=== PATIENT | female | born 1935 | race Caucasian/White ===

== ENCOUNTER 2023-06-18 19:31 | Inpatient (IN) | payer MEDICARE, MEDICAID, SELFPAY ==
[2023-06-18] VITALS (12 sets, daily range): BP systolic 98–148; BP diastolic 50–86; PULSE 94–99; RESP 12–28; TEMP 36.3; O2SAT 90–100
--- NOTE | ~2023-06-18 | XR_ITS ---
EXAMINATION: XR chest PICC line DATE: 06/19/2023 10:16 INDICATION: PICC line placement TECHNIQUE: frontal view of the chest was obtained. COMPARISON: Chest radiograph dated 06/18/2023 FINDINGS: Right upper extremity peripherally inserted central venous catheter (PICC) tip at the mid superior v alban cava. Endotracheal tube tip 3.0 cm above the sonja. Retrocardiac opacity corresponding to a moderate-sized hiatal hernia. A few skin folds project over t he right hemithorax. No new airspace opacities, pulmonary edema, pleural effusion or pneumothorax. He art size is normal. Pigtail drainage catheter projects over the right upper quadrant. Pedicle screws are seen from incompletely visualized lumbar posterior spinal fusion. IMPRESSION: 1. Right PICC line tip in the midsuperior vena cava. No acute cardiopulmonary disease. 2. Moderate-sized hiatal hernia. Reviewed, dictated and finalized at location A. RAM ENGINEER IMPRESSION: 1. Right PICC line tip in the midsuperior vena cava. No acute cardiopulmonary d isease. 2. Moderate-sized hiatal hernia.
--- NOTE | ~2023-06-18 | XR_ITS ---
XR chest 1V portable DATE: 06/20/2023 05:46 INDICATION: Respiratory failure TECHNIQUE: Portable AP chest on 06/20/2023 at 0520 hours COMPARISON: 06/19/2023 portable AP chest at 0958 hours FINDINGS: ET tube in satisfactory position 3.9 cm above sonja. Right upper extremity PIC catheter ti p overlies superior vena cava. Increased retrocardiac density on the left consistent with left lower lobe atelectasis and/or consoli dation. The lungs otherwise appear clear. No pleural effusion or pulmonary vascular congestion or pne umothorax is detected. Status post posterior lumbar spinal surgical fusion beginning superiorly at L3.. Pigtail catheter overlies right upper quadrant of abdomen. IMPRESSION: Left lower lobe atelectasis and/or consolidation Reviewed, dictated and finalized at location A. OMINIUM PROPERTY MANAGER
--- NOTE | ~2023-06-18 | CT_ITS ---
EXAMINATION: CT abdomen pelvis wo con DATE: 06/18/2023 21:52 INDICATION: AMS, biliary drain TECHNIQUE: Computed tomography (CT) of the abdomen and pelvis was performed without intravenous contr ast. Automated exposure control and iterative reconstruction technique were employed. The dose-length product was 436.75 mGy-cm. COMPARISON: X-ray abdomen, same date. FINDINGS: Lower thorax: Large hiatal hernia containing at least one half of the stomach. Heavy coronary artery calcification. Mitral calcification. Liver: Normal. Biliary/Gallbladder: Gallbladder is absent. No bile duct dilation. Pancreas: No mass or duct dilation. Spleen: Normal. Adrenals:No mass. Kidneys: No suspicious mass, obstructing stone, or hydronephrosis. GI tract: Borderline dilated, mostly air-filled cecum. Fecal content in the distal small bowel. The r ectum is mildly dilated up to 5.7 cm by partially formed stool. No small bowel dilation. Surgically a bsent appendix. Mesentery/Peritoneum: No ascites, mass, or free air. There is a pigtail drain in the right upper quad rant. Retroperitoneum: No mass. Atherosclerotic abdominal aortic and/or arterial calcifications. Pelvis: The bladder is decompressed by Andrade catheter. Atrophic uterus and ovaries. Soft Tissues: Soft tissues and body wall unremarkable. Bones: No acute osseous finding. Uncomplicated L3-L5 posterior fusion, with interbody devices at L3- 4. IMPRESSION: Large hiatal hernia containing approximately one half of the stomach. NG tube is high positioned in t he prior x-ray abdomen. Failure to pass an NG tube can be a sign of gastric volvulus. No overt signs of gastric volvulus in this CT examination, although this entity cannot be entirely excluded. The gallbladder is not confidently identified and may be surgically absent. Pigtail drain in the righ t upper quadrant, presumably in the cholecystectomy bed. Correlate with past surgical history. Likely chronic borderline dilation of the cecum. Fecal content in the distal small bowel as can be se en with slow transit time. Mild fecal impaction. Gastric findings reported telephonically to Dr. Gutierrez by Dr. Magdaleno at 10:30 PM on 06/18/2023. Reviewed, dictated and finalized at location K. LY SERVICE CASEWORKER IMPRESSION: Large hiatal hernia containing approximately one half of the stomach. NG tube i s high positioned in the prior x-ray abdomen. Failure to pass an NG tube can be a sign of gastric volvulus. No overt signs of gastric volvulus in this CT exam ination, although this entity cannot be entirely excluded. The gallbladder is not confidently identified and may be surgically absent. Pig tail drain in the right upper quadrant, presumably in the cholecystectomy bed. Correlate with past surgical history. Likely chronic borderline dilation of the cecum. Fecal content in the distal sm all bowel as can be seen with slow transit time. Mild fecal impaction. Gastric findings reported telephonically to Dr. Gutierrez by Dr. Magdaleno at 10:30 PM on 06/18/2023.
--- NOTE | ~2023-06-18 | XR_ITS ---
EXAMINATION: XR chest ET placement Exam Date/Time: 06/18/2023 19:55 EMBEDDED SOFTWARE DESIGN ENGINEER HISTORY: ET placement Comparison: None. RESULT: Lines, tubes, and devices: Endotracheal tube, terminating 4.7 cm above the sonja. Partially visuali zed lumbar fusion hardware. Partially visualized right ureteral stent. Lungs and pleura: Leftward rotation. Rounded retrocardiac opacity, likely hiatal hernia. Senescent c hanges. No focal consolidation, pleural effusion, or pneumothorax. Cardiomediastinal silhouette: Stable. Other: No acute osseous or upper abdominal finding. IMPRESSION: Endotracheal tube terminating 4.7 cm above the sonja. Reviewed, dictated and finalized at location K. DDED SOFTWARE DESIGN ENGINEER
--- NOTE | ~2023-06-18 | XR_ITS ---
EXAM: XR abdomen gastric tube insert DATE: 06/18/2023 20:19 HISTORY: OG TUBE . COMPARISON: X-ray chest, same date. FINDINGS: Likely large hiatal hernia and/or aortic ectasia. Clear lung bases. Normal bowel gas patte rn. Partially visualized lumbar fusion hardware and right ureteral stent. The distal tip of the nasog astric tube terminates in the distal esophagus. IMPRESSION: The nasogastric tube terminates in the distal esophagus, consider advancing 15 cm. Reviewed, dictated and finalized at location K. R PRESS OPERATOR IMPRESSION: The nasogastric tube terminates in the distal esophagus, consider a dvancing 15 cm.
--- NOTE | ~2023-06-18 | CT_ITS ---
EXAMINATION: CT brain wo con DATE: 06/18/2023 21:49 INDICATION: AMS . TECHNIQUE: Computed tomography (CT) of the head was performed without intravenous contrast. The mA wa s adjusted according to patient size. Iterative reconstruction technique was employed. The dose-lengt h product was 605.33 mGy-cm. COMPARISON: None. FINDINGS: No acute intracranial hemorrhage or extra-axial fluid collection. Moderate-severe enlargement of the ventricular system. No acute ischemic infarct. Unremarkable dural venous sinus attenuation. No acute osseous abnormality. Aerated secretions in the sphenoid sinuses, the remaining aerated spaces are clear. Possible severe atrophy and moderate chronic white matter change. Atherosclerotic intracranial calcif ication. Bilateral lens replacements. Partially empty sella. IMPRESSION: Enlarged ventricular system, may be secondary to central atrophy, also consider normal pressure hydro cephalus in the differential. Reviewed, dictated and finalized at location K. GNA MAKER IMPRESSION: Enlarged ventricular system, may be secondary to central atrophy, also consider normal pressure hydrocephalus in the differential.
[2023-06-18] MEDS: SODIUM CHLORIDE 0.9% IV 1,000 ML 999 ML IV CONT ×2 (19:40→22:45)
--- NOTE | 2023-06-18 19:50 | ECG_ITS ---
Measurements Intervals [place] Rate: 97 P: -62 NV: 138 QRS: -36 QRSD: 116 T: 89 QT: 362 QTc: 460 Interpretive Statements JUNCTIONAL RHYTHM POSSIBLE LEFT ATRIAL ENLARGEMENT [-0.1mV P WAVE IN V1/V2] MARKED LEFT AXIS DEVIATION [QRS AXIS < -30] INCOMPLETE LEFT BUNDLE BRANCH BLOCK/IVCD ST DEVIATION AND MODERATE T-WAVE ABNORMALITY, CONSIDER LATERAL ISCHEMIA [-0.1+ mV T WAVE IN I/aVL/V5/V6] ABNORMAL ECG NO PREVIOUS ECG AVAILABLE FOR COMPARISON Electronically Signed On 06-19-2023 15:00:13 RESIDENCE DIRECTOR by Rodney Hills M.D.
--- NOTE | 2023-06-18 19:55 | ED.GENADULT ---
HPI - General Adult General Chief complaint: Altered Mental Status Stated complaint: ams Time Seen by Provider: 06/18/23 19:35 History of Present Illness HPI narrative: 88-year-old female presenting to the emergency department for evaluation for unresponsiveness. Patient is coming from home. Patient was recently diagnosed with a urinary tract infection. initially told EMS that the patient was DNI DNR comfort care. Upon arrival to the emergency department patient's states that he does not want her to be resuscitated but that he does want her to be intubated. Upon arrival to the emergency department patient was obtunded and had no gag reflex. She was intubated to protect her airway Related Data Home Medications Medication Instructions Recorded Confirmed duloxetine 60 mg capsule,delayed 120 mg PO DAILY 06/19/23 06/19/23 release glipizide 5 mg tablet 5 mg PO BID 06/19/23 06/19/23 losartan 100 mg tablet 100 mg PO DAILY 06/19/23 06/19/23 memantine 10 mg tablet 10 mg PO BID 06/19/23 06/19/23 metformin 500 mg/5 mL oral solution 500 mg PO BID 06/19/23 06/19/23 mirtazapine 45 mg tablet 45 mg PO HS 06/19/23 06/19/23 quetiapine 25 mg tablet 25 mg PO TID 06/19/23 06/19/23 trazodone 50 mg tablet 25 mg PO TID PRN Agitation 06/19/23 06/19/23 Allergies Allergy/AdvReac Type Severity Reaction Status Date / Time No Known Allergies Allergy Verified 06/18/23 21:26 Review of Systems Review of Systems: ROS unobtainable: Yes unobtainable due to medical condition PMFSH Social History Social History Smoking status: Never smoker Alcohol intake: never Substance use: never Do You Feel Safe in your Home?: Yes Lack of Transportation: No Lack of Food: Never True Current Housing: Decline to Answer Concerned About Future Housing: No Difficulty Paying Gas/Electric Bills: No Difficulty Paying for Meds: No Currently Unemployed: No Education: Decline to Answer Difficulty w/ Childcare or Family Care: No Spiritual care concerns: No Exam Narrative: APPEARANCE: obtunded and unresponsive HEAD: normocephalic, atraumatic. EYES: PERRLA/EOMI, conjunctivae clear. NOSE: Normal no drainage EARS:TMS clear with good light reflex. THROAT: Pharynx clear, no exudate. NECK: Supple. No adenopathy, no masses. RESPIRATORY: Airway patent, respirations nonlabored. Clear to auscultation bilaterally, no rales, rhonchi, wheezing. CARDIOVASCULAR: Regular rate and rhythm without murmurs rubs or gallops. ABDOMINAL: Soft, nontender, nondistended, normal bowel sounds MUSCULOSKELETAL: Moves all extremities. Strength/ROM intact, No edema, No calf tenderness. NEURO: does respond to noxious stimuli with no intention SKIN: Warm, dry. Normal Color Course Course Emergency Course: 88-year-old female presenting to the emergency department by EMS in respiratory distress and unresponsive. Patient was intubated shortly after arrival to the emergency department to protect her airway. Patient had a Andrade catheter placed and had urine that was significant for urinary tract infection. Patient was started on IV fluids. Patient was afebrile but does have a leukocytosis of 24. Patient's initial ABG showed a pH of 7.05, pCO2 of 13 and a PO2 of 400. Patient's respiratory rate was decreased and patient's FiO2 was decreased response to this. Patient's initial potassium was elevated 6.1 she was treated with bicarb insulin and IV fluids. Patient's creatinine was 5.8. Case was discussed with the spring coverer the patient was accepted to the ICU. Case discussed with hospitalist. Patient's was updated on the seriousness of the patient's illness. Vital Signs Vital signs: Vital Signs Pulse Rate 99 06/18/23 19:35 Respiratory Rate 28 H 06/18/23 19:35 Blood Pressure 98/57 L 06/18/23 19:35 Pulse Oximetry 90 06/18/23 19:35 Oxygen Delivery Non-Rebreather Mask 06/18/23 19:35 Oxygen Flow Rate 15 06/18/23 19:3
[2023-06-18] MEDS: PROPOFOL IV EMULSION 100 ML 1.56 MG IV CONT (20:00)
--- NOTE | 2023-06-18 20:02 | ECG_ITS ---
Measurements Intervals [place] Rate: 93 P: 57 NH: 152 QRS: -41 QRSD: 114 T: 64 QT: 397 QTc: 495 Interpretive Statements SINUS RHYTHM MARKED LEFT AXIS DEVIATION [QRS AXIS < -30] INCOMPLETE LEFT BUNDLE BRANCH BLOCK/Ivcd ABNORMAL ECG COMPARED TO ECG 06/18/2023 19:38:41 NO DIFFERENCE Electronically Signed On 06-19-2023 15:06:22 WARP SPOOLER by Rodney Hills M.D.
--- NOTE | 2023-06-18 20:10 | PC.NURSE ---
1934 - pt arrival satting 90% on 15L NRB. Pt unresponsive to sternal rub. 1939 - Dr. Gutierrez at bedside. Decided to intubate. VORB 20 etomidate, 100 succinylcholine. 2 liters of fluids infusing. 1944 - EDP Dr Gutierrez, RT, Alia Bonilla, and this RN at bedside. 90% NRB, 89/48, HR 101, RR 29 1945 - 20 etomidate IVP and flushed by Alia RN 100 succinylcholine IVP and flushed by Alia [place] 1946 - positive color change, bilateral breath sounds, equal chest rise and fall. 7.5 ET tube, 21 @ the lip 1947 - bagging by RT 1949 - 95% on vent, 148/50, HR 93, RR 13 1954 - xray at bedside to check placement of ET tube. 1999 - propofol sedation started at 5mcg/min
[2023-06-18 20:55] LABS: Alveolar/Arterial O2 Gradient 145.4 mmHg; Base Excess ABG -24.3 mEq/l (+/-2.0); Carboxyhemoglobin 0.3 % THb (0-2.0); Fractional Inspired Oxygen 80 %; HCO3 ABG 3.7 mEq/l (22.0-26.0); Methemoglobin ABG 0.4 %THb (0-1.5); Oxygen Content ABG 17.4 %vol (16.0-22.0); Oxygen Saturation ABG 99.7 % (95.0-100.0); Oxyhemoglobin 98.3 % THb (90.0-100.0); PO2 ABG 411.4 mmHg (80.0-100.0); PO2 FiO2 Ratio Arterial Blood 5.14 %; Total Hemoglobin 11.8 g/dL (12.0-18.0)
[2023-06-18 20:57] LABS: pH ABG 7.075 (7.350-7.450)
[2023-06-18 20:58] LABS: Arterial Blood Gas Ventilator rate 15 /MIN; Device VENTILATOR; Modified Allen's Test Pass; Site Drawn LEFT BRACHIAL
[2023-06-18 20:59] LABS: Arterial Blood Gas PEEP 5 cmH2O; Arterial Blood Gas Tidal Volume 400 ml; Arterial Blood Gas Vent Mode CMV
[2023-06-18 21:25] LABS: Basophils Absolute Auto 0.1 K/mm3 (0.0-0.1); Basophils Percent Auto 0.5 % (0.2-1.2); Eosinophils Percent Auto 0.1 % (0-4.4); Hematocrit 41.8 % (37.0-47.0); Hemoglobin 12.9 g/dL (12.0-15.0); Immature Granulocyte Absolute 1.06 K/mm3 (0.00-0.031); Immature Granulocyte Percent A 4.3 % (0-0.5); Lymphocytes Absolute Auto 0.57 K/mm3 (0.9-3.2); Lymphocytes Percent Auto 2.3 % (18.3-44.2); Mean Corpuscular HGB Conc 30.9 g/dl (32-36); Mean Corpuscular Hemoglobin 24.7 pg (26-34); Mean Corpuscular Volume 79.9 fl (80-100); Mean Platelet Volume 9.2 fl (7.4-10.4); Monocytes Absolute Auto 0.7 K/mm3 (0.1-0.6); Monocytes Percent Auto 2.9 % (2.6-8.5); Neutrophils Absolute Auto 21.9 K/mm3 (1.3-6.7); Neutrophils Percent Auto 89.9 % (45.5-73.1); Platelet Count Result 410 k/mm3 (150-375); Red Blood Count 5.23 M/mm3 (4.2-5.4); White Blood Count 24.4 K/mm3 (4.5-10.0)
[2023-06-18 21:35] LABS: INR 1.2; Prothrombin Time 15.7 Seconds (11.1-14.7)
[2023-06-18 21:36] LABS: CRP 3.5 mg/dL (<1.0); Partial Thromboplastin Time 31.7 SECONDS (22.3-36.8); Triglycerides 181 mg/dL (<150)
[2023-06-18 21:40] LABS: Appearance Urine Turbid (Clear); Bacteria Urine 1+ /hpf; Bilirubin Urine 1+ (Negative); Blood Urine 1+ (Negative); Budding Yeast Urine Present /hpf; Glucose Urine UA Negative (Negative); Ketones Urine Negative (Negative); Leukocyte Esterase Ur 3+ LEU/UL (Negative); Need Manual Microscopic Reviewed; Nitrate Urine Positive (Negative); Non Pathogenic Casts 0-2; Protein Urine 2+ mg/dL (Negative); RBC Urine >100 /hpf (0-2); Specific Grav Ur 1.016 (1.001-1.035); Squamous Epithelial Cell Urine Many /hpf (Few); Urobilinogen Urine 0.2 mg/dL (<2.0); WBC Urine >100 /hpf
[2023-06-18 21:43] LABS: Add Urine Microscopic? YES; Color Urine Brown (Yellow)
[2023-06-18 21:46] LABS: Estimated CRCL calculation 5 ml/min; Estimated Glomerular Filt Rate 7
[2023-06-18 21:50] LABS: Alanine Aminotransferase 74 U/L (6-35); Albumin Level 4.2 g/dL (3.5-5.1); Alkaline Phosphatase 127 U/L (38-126); Aspartate Amino Transferase 36 U/L (14-36); Bilirubin,Total 0.7 mg/dL (0.2-1.3); Blood Urea Nitrogen > 120 mg/dL (7-17); Calcium 9.4 mg/dL (8.4-10.2); Carbon Dioxide < 5 mmol/L (22-30); Chloride 103 mmol/L (98-107); Glucose 381 mg/dL (65-110); Lipase 54 U/L (23-300); Potassium 6.1 mmol/L (3.4-5.0); Sodium 131 mmol/L (137-145)
[2023-06-18 21:51] LABS: Ovalocytes 1+ (NORMAL); Platelet Estimate Increased (Adequate); Schistocytes None Seen (NORMAL)
--- NOTE | 2023-06-18 22:01 | PC.NURSE ---
pt back in room from CT scan.
[2023-06-18 22:05] LABS: Estimated CRCL calculation 5 ml/min; Estimated Glomerular Filt Rate 8
[2023-06-18 22:15] LABS: Erythrocyte Sedimentation Rate 10 mm/hr (0-20)
[2023-06-18] MEDS: SODIUM BICARBONATE 8.4% 50 MEQ/50 ML SYRINGE IV PUSH (22:44)
[2023-06-18] MEDS: INSULIN HUMAN REGULAR (*BKC) 100 UNITS/ML 10 UNITS IV PUSH (22:44)
--- NOTE | 2023-06-18 22:53 | PC.NURSE ---
multiple attempts at NG/OG placement by multiple RN's without success. EDP made aware.
[2023-06-18 23:09] LABS: Procalcitonin 3.6 ng/mL
[2023-06-18] MEDS: VANCOMYCIN 750 MG/NS 250 ML 750 MG/250 ML BAG 250 MG IVPB (23:13)
[2023-06-19] VITALS (52 sets, daily range): BP systolic 55–141; BP diastolic 27–89; PULSE 94–134; RESP 15–39; TEMP 34.3–38.1; O2SAT 66–100; BMI 22.1
--- NOTE | 2023-06-19 | ECHO_ITS ---
Patient Info Name: Marcelina Cortes Age: 88 years : 1935 Gender: Female Ht: 61 in Wt: 114 lbs BSA: 1.50 m2 HR: 108 bpm BP: 114 / 80 mmHg Heart Rhythm: Sinus Rhythm Technical Quality: Poor Exam Date: 06/19/2023 10:53 AM Exam Location: Echo Lab Exam Room: ICU7 Patient Status: Inpatient Admit Date: 06/19/2023 Staff Ordering Physician: Jacquelyn Knight MD Agricultural Extension Educator: Sujata Ramirez RDCS Attending Provider: José Miguel Richard MD Referring Physician: Eugene JIMENEZ; Exam Type: CA echo dop color flow w con Study Info Indications - SEPTIC SHOCK Complete two-dimensional, color flow and Doppler transthoracic echocardiogram is performed with contrast to opacify the left ventricle and to improve the deliniation of the left ventricle endocardial borders. Contrast/Agitated Saline Contrast/Ag. Saline: Definity Amount: 2.00 ml Administered By: Sujata Ramirez [facility] Existing IV Access: Yes Reason for Poor Study: poor echocardiographic windows Summary 1. Technically challenging echocardiogram, definity contrast used to improve visualization. 2. Normal left ventricular size with hyperdynamic systolic contractility. 3. Heavily calcified mitral valve annulus. 4. Sclerotic aortic valve with good leaflet separation, no stenosis. Left Ventricle Left ventricular chamber dimension is normal. Left ventricular systolic function is hyperdynamic, estimated at >70%. The left ventricular diastolic function is grade I diastolic dysfunction. Right Ventricle Right ventricular chamber dimension is normal. Left Atria Left atrial chamber dimension is normal. Right Atria Right atrial chamber dimension is normal. Aortic Valve The aortic valve is trileaflet. There is mild aortic valve sclerosis. Pulmonic Valve The pulmonic valve is not well visualized. Mitral Valve The mitral valve has normal leaflets. The mitral valve annulus is severely calcified. Tricuspid Valve The tricuspid valve leaflets are normal. Pericardium/Pleural The pericardium appears normal. Aorta The aortic root size at the sinus of Valsalva is normal. Left Ventricular Outflow Tract Name Value Normal LVOT 2D LVOT Diameter 1.98 cm Mitral Valve Name Value Normal MV Diastolic Function MV E Peak Velocity 49.58 cm/s MV A Peak Velocity 2.60 cm/s MV E/A 19.04 Aortic Valve Name Value Normal AV Regurgitation 2D LVOT Area 3.06 cm2 Ventricles Name Value Normal LV Dimensions 2D/MM
--- NOTE | 2023-06-19 00:02 | PM.IMHP ---
H&P: HPI History of Present Illness Date/Time: 06/19/23 00:02 Chief Complaint: Altered mental status Narrative: This is an 88-year-old female with past medical history significant for hypertension, diabetes, depression. Patient was brought to the emergency room by her due to altered mental status, lethargy patient had a procedure done at outside facility had a drain placed in her gallbladder according to she progressively declined after that , noticed generalized weakness, poor per orally intake, poor appetite. Upon arrival to emergency room patient had to be immediately placed on life support. Preliminary workup was significant for lactic acid of 8, ABG showed a pH of 7.075, BUN 120 creatinine 5.8 a urinalysis showed numerous WBCs present. EXAMINATION: CT abdomen pelvis wo con DATE: 06/18/2023 21:52 INDICATION: AMS,? biliary drain TECHNIQUE: Computed tomography (CT) of the abdomen and pelvis was performed without intravenous contrast. Automated exposure control and iterative reconstruction technique were employed. The dose-length product was 436.75 mGy-cm. COMPARISON: X-ray abdomen, same date. FINDINGS: Lower thorax: Large hiatal hernia containing at least one half of the stomach. Heavy coronary artery calcification. Mitral calcification. Liver: Normal.? Biliary/Gallbladder: Gallbladder is absent. No bile duct dilation. Pancreas: No mass or duct dilation. Spleen: Normal. Adrenals:No mass. Kidneys: No suspicious mass, obstructing stone, or hydronephrosis. GI tract: Borderline dilated, mostly air-filled cecum. Fecal content in the distal small bowel. The rectum is mildly dilated up to 5.7 cm by partially formed stool. No small bowel dilation. Surgically absent appendix. Mesentery/Peritoneum: No ascites, mass, or free air. There is a pigtail drain in the right upper quadrant. Retroperitoneum: No mass. Atherosclerotic abdominal aortic and/or arterial calcifications. Pelvis: The bladder is decompressed by Andrade catheter. Atrophic uterus and ovaries. Soft Tissues: Soft tissues and body wall unremarkable. Bones:? No acute osseous finding. Uncomplicated L3-L5 posterior fusion, with interbody devices at L3-4. IMPRESSION: Large hiatal hernia containing approximately one half of the stomach. NG tube is high positioned in the prior x-ray abdomen. Failure to pass an NG tube can be a sign of gastric volvulus. No overt signs of gastric volvulus in this CT examination, although this entity cannot be entirely excluded. The gallbladder is not confidently identified and may be surgically absent. Pigtail drain in the right upper quadrant, presumably in the cholecystectomy bed. Correlate with past surgical history. Likely chronic borderline dilation of the cecum. Fecal content in the distal small bowel as can be seen with slow transit time. Mild fecal impaction. EXAMINATION:? XR chest ET placement Exam Date/Time:? 06/18/2023 19:55 ENERGY CROP FARMER HISTORY: ET placement ? Comparison:? None. RESULT: Lines, tubes, and devices:? Endotracheal tube, terminating 4.7 cm above the sonja. Partially visualized lumbar fusion hardware. Partially visualized right ureteral stent. Lungs and pleura:? Leftward rotation. Rounded retrocardiac opacity, likely hiatal hernia. Senescent changes. No focal consolidation, pleural effusion, or pneumothorax. Cardiomediastinal silhouette:? Stable. Other:? No acute osseous or upper abdominal finding. ? IMPRESSION: Endotracheal tube terminating 4.7 cm above the sonja. Review of Systems Review of Systems: ROS unobtainable: Yes unobtainable due to medical condition (Patient is on life support) [facility] Social History Social History Smoking status: Never smoker Alcohol intake: never Substance use: never Do You Feel Safe in your Home?: Yes Lack of Transportation: No Lack of Food: Never True Current Housing: Decline to Answer Concerned About Future Housing: No Difficulty Paying Gas/El
--- NOTE | 2023-06-19 01:24 | ADMGEN ---
This patient, Marcelina Cortes, was admitted to Intensive Care Unit-7. Patient/family oriented to hospital policies and general routines including ID bracelet, bed and alarms, visiting hours, pain management, procedures, bathroom and other care routines, personal items, smoking policy, room service/diet, and visiting hours. Information on how to activate the Rapid Response Team has been discussed. Patient/Family are encouraged to report perceived risks to care and to ask questions if they do not understand what they are told or what they should do.
[2023-06-19 01:38] LABS: Reflex Lactic Acid Yes or No Add Lactic
[2023-06-19 02:44] LABS: Glucose Point of Care 223 mg/dl (65-105)
[2023-06-19] MEDS: SODIUM CHLORIDE 0.9% IV 1,000 ML 125 ML IV CONT (02:53)
[2023-06-19 03:29] LABS: Hematocrit 40.3 % (37.0-47.0); Hemoglobin 12.1 g/dL (12.0-15.0); Mean Corpuscular Hemoglobin 24.5 pg (26-34); Mean Corpuscular Volume 81.7 fl (80-100); Mean Platelet Volume 9.3 fl (7.4-10.4); Platelet Count Result 365 k/mm3 (150-375); Red Blood Count 4.93 M/mm3 (4.2-5.4); White Blood Count 29.9 K/mm3 (4.5-10.0)
[2023-06-19 04:03] LABS: Lactic Acid 7.5 mmol/L (0.7-2.0)
[2023-06-19 04:05] LABS: Calcium 9.3 mg/dL (8.4-10.2); Carbon Dioxide < 5 mmol/L (22-30); Chloride 108 mmol/L (98-107); Estimated CRCL calculation 6 ml/min; Estimated Glomerular Filt Rate 8; Glucose 206 mg/dL (65-110); Magnesium 1.9 mg/dL (1.6-2.3); Potassium 4.7 mmol/L (3.4-5.0); Sodium 135 mmol/L (137-145)
[2023-06-19] MEDS: SODIUM BICARBONATE 8.4% 50 MEQ/50 ML SYRINGE 100 MEQ IV PUSH ×3 (04:25→21:39)
[2023-06-19 04:39] LABS: Alveolar/Arterial O2 Gradient 185.1 mmHg; Base Excess ABG -6.2 mEq/l (+/-2.0); Fractional Inspired Oxygen 100 %; HCO3 ABG 15.9 mEq/l (22.0-26.0); Oxygen Content ABG 16.8 %vol (16.0-22.0); Oxygen Saturation ABG 99.9 % (95.0-100.0); Oxyhemoglobin 98.3 % THb (90.0-100.0); PO2 ABG 505.2 mmHg (80.0-100.0); PO2 FiO2 Ratio Arterial Blood 5.05 %; Total Hemoglobin 11.1 g/dL (12.0-18.0); pH ABG 7.464 (7.350-7.450)
[2023-06-19 04:44] LABS: PCO2 ABG 22.7 mmHg (35.0-45.0)
[2023-06-19 04:45] LABS: Arterial Blood Gas Vent Mode CMV; Arterial Blood Gas Ventilator rate 15 /MIN; Device VENTILATOR; Site Drawn LEFT BRACHIAL
[2023-06-19 04:46] LABS: Arterial Blood Gas PEEP 5 cmH2O; Arterial Blood Gas Tidal Volume 350 ml
[2023-06-19] MEDS: SODIUM BICARBONATE 8.4% 150 MEQ in WATER, STERILE FOR INJECTION 950 ML 100 MEQ IV CONT ×2 (05:21→19:42)
--- NOTE | 2023-06-19 05:24 | PC.NURSE ---
Addendum entered by Duy Gutierrez RN 06/19/23 05:54: Pt became hypotensive. Alerted Jewelry Jobber ,who wanted central line placed. made pt dnr, but did not discuss central line or other life saving treatments. Called twice and got no answer for consent. Left voicemail and alerted plug making operator. Curb Machine Operator deffered central line placement to later time. Started Bicarb gtt and phenylephrine to help blood pressure in the mean time. Original Note: Pt became hypotensive. Alerted Jewelry Jobber ,who wanted central line placed. made pt dnr, but did not discuss central line or other life saving treatments. Called twice and got no answer for consent. Left voicemail and alerted plug making operator. Started Bicarb gtt and phenylephrine to help blood pressure in the mean time.
[2023-06-19 05:54] LABS: Blood Urea Nitrogen 130 mg/dL (7-17)
[2023-06-19] MEDS: SODIUM CHLORIDE 0.9% IV 1,000 ML 999 ML IV CONT (07:44)
[2023-06-19] MEDS: MIDAZOLAM HCL (*CRX) 2 MG/2 ML VIAL IV PUSH ×2 (07:45→22:40)
[2023-06-19] MEDS: ROCURONIUM BROMIDE 50 MG/5 ML VIAL IV PUSH (07:45)
[2023-06-19 09:21] LABS: Alanine Aminotransferase 41 U/L (6-35); Albumin Level 3.7 g/dL (3.5-5.1); Alkaline Phosphatase 116 U/L (38-126); Aspartate Amino Transferase 54 U/L (14-36); Bilirubin,Total 0.6 mg/dL (0.2-1.3); Creatine Kinase 221 U/L (30-135)
[2023-06-19] MEDS: NOREPINEPHRINE 8 MG/D5W 250 ML 8 MG/250 ML BAG 56.25 MG IV CONT ×4 (09:54→23:06)
--- NOTE | 2023-06-19 10:55 | WPDCNINT ---
Assessment and Plan Assessment and plan (1) Acute respiratory failure: Code(s): J96.00 - Acute respiratory failure, unspecified whether with hypoxia or hypercapnia Status: Acute Assessment and Plan: Patient presented to the ED with altered mental status, normal gag, we intubated for airway protection -06/18: Intubation -currently on CMV mode of ventilation, peep of 5 and 100% FiO2 via wean FiO2 to maintain O2 sats > 92% -low tidal volume strategy -ABGs and chest x-ray -not on any sedation (2) Septic shock: Code(s): A41.9 - Sepsis, unspecified organism; R65.21 - Severe sepsis with septic shock Status: Acute Assessment and Plan: Septic shock likely related to UTI -patient has a cholecystostomy tube that was placed at [facility] earlier this month -elevated lactic acid level -patient has been adequately fluid-resuscitated -patient is on Taj-Synephrine and Levophed, maintain MAP > 70 mmHg are SBP > 100 mmHg -patient given additional IV fluid bolus -patient has been started on cefepime and vancomycin (06/19) -06/18: blood cultures have been obtained and pending -06/18: Urine cultures have been obtained and pending (3) LOUISE (acute kidney injury): Code(s): N17.9 - Acute kidney failure, unspecified Status: Acute Assessment and Plan: Acute kidney injury with creatinine on admission of 5.80. Likely related to hypotension, septic shock, UTI -CT scan of the abdomen and pelvis did not show any suspicious mass in the kidneys, no obstructing stone or hydronephrosis -patient adequately fluid-resuscitated -elevated lactic acid -continue sodium bicarb infusion -will obtain urine lytes, and urine eosinophils -CK levels of 221 -creatinine gradually in from improving, with minimal urine output -continue to monitor urine output, renal function, electrolytes -consult Nephrology (4) Metabolic acidosis: Code(s): E87.20 - Acidosis, unspecified Status: Acute Assessment and Plan: Metabolic acidosis likely related to lactic acidosis, uremia -will continue to treat underlying cause (5) Diabetes: Code(s): E11.9 - Type 2 diabetes mellitus without complications Status: Acute Assessment and Plan: Accu-Cheks and sliding scale insulin Plan DVT prophylaxis: Heparin SQ Stress ulcer prophylaxis: Protonix Nutrition: NPO for now Code Status: Do not resuscitate Critical Care Time Spent: 55 minutes Discussed with patient's , Aiden, updated with patient's condition plan of care. He is aware that the patient is very sick and that she is suffering. He does not want any CPR on her at this time we wants to continue everything else for now Due to a high probability of clinically significant, life threatening deterioration, the patient required my highest level of preparedness to intervene emergently and I personally spent this critical care time directly and personally managing the patient. This critical care time included obtaining a history; examining the patient; pulse oximetry; ordering and review of studies; arranging urgent treatment with development of a management plan; evaluation of patient's response to treatment; frequent reassessment; and discussions with other providers. It was exclusive of separately billable procedures and treating other patients and teaching time. Please see Assessment and Plan section and the rest of the note for further information on patient assessment and treatment This dictation may have been done utilizing a voice recognition system. Attempts have been made to correct errors. However, there may be uncorrected grammatical, spelling, and recognitions errors present. Scalper Operator Consult Note Consult date: 06/19/23 Reason for consult: Acute respiratory failure, Septic shock, UTI, altered mental status, lethargy acute kidney injury, metabolic acidosis/lactic acidosis HPI: Marcelina Cortes is a 88 year old female diabete
[2023-06-19] MEDS: LIDOCAINE HCL 1% PF INJ 5 ML VIAL INFILTRATE (11:12)
[2023-06-19] MEDS: PERFLUTREN LIPID MICROSPHERES 1.5 ML VIAL DILUTED TO 10 ML TOTAL VOLUME IV PUSH (11:20)
[2023-06-19 11:54] LABS: Hemoglobin A1C 6.4 % (<5.7)
--- NOTE | 2023-06-19 12:29 | PM.CNNEP ---
Assessment and Plan Assessment and plan (1) LOUISE (acute kidney injury): Code(s): N17.9 - Acute kidney failure, unspecified Status: Acute Assessment and Plan: The patient has acute kidney injury. There is no history of chronic kidney disease in the chart. Most likely the acute kidney injury is due to the bladder infection and hypotension. Whether there is an issue involving the gallbladder is not clear but her liver enzymes are not too bad her CT did not show much. Other causes such as glomerulonephritis or interstitial nephritis are less likely in this clinical scenario. The patient had a CT scan ruling out obstruction. CPK is normal so this rules out rhabdomyolysis as a cause of her kidney disease. The BUN and creatinine are very high. Because of her tenuous state with severe hypotension being on 2 pressors and at her age with her general physical condition dialysis would be risky at this point. Will follow for a few days with conservative measures with medicines etc.. Will check urine electrolyte lytes. I agree with the bicarbonate drip since her bicarbonate level is so low. Discussed with Dr. Knight (2) Metabolic acidosis: Code(s): E87.20 - Acidosis, unspecified Status: Acute Assessment and Plan: The patient has metabolic acidosis. She also has respiratory alkalosis superimposed possibly due to the sepsis. Her anion gap is between 22 and 27 depending on what the bicarb really is. Her albumin level is normal so her anion gap is probably somewhere around 12. Which means the delta anion gap is summer between 10 in 17. Her lactic acid level is 7.5 which explains some of this. She also has a high BUN creatinine so uremic toxins are probably responsible for the remainder. I agree with the bicarbonate drip since the bicarbonate level is so low. (3) Urinary tract infection: Code(s): N39.0 - Urinary tract infection, site not specified Status: Acute Assessment and Plan: The patient has pyuria. Cultures are pending. She is on ceftriaxone (4) Altered mental status: Code(s): R41.82 - Altered mental status, unspecified Status: Acute Assessment and Plan: she is very sick right now. Hopefully she will improve mental status with correction of her electrolytes and BUN creatinine. (5) Acute hypoxic respiratory failure: Code(s): J96.01 - Acute respiratory failure with hypoxia Status: Acute Assessment and Plan: She is on the ventilator and getting supportive care. (6) Diabetes: Code(s): E11.9 - Type 2 diabetes mellitus without complications Status: Acute Assessment and Plan: She is on Accu-Cheks and sliding-scale insulin. Glucose management per hospitalists. (7) Cholecystostomy care: Code(s): Z43.4 - Encounter for attention to other artificial openings of digestive tract Status: Acute History of Present Illness Reason for Consult Consult date: 06/19/23 Chief Complaint Chief complaint: Pyelonephritis,Multi Organ Failure,Sepsis,AMS History of Present Illness Narrative: Marcelina is a very pleasant 88-year-old lady who has multiple medical problems including hypertension, diabetes, depression. The patient was in her usual state of health until she fell some gallbladder issues. Apparently she had a drain placed in her gallbladder and after that over the last few days he has gradually worsened. She went to the ER and was found to be unresponsive so she was intubated and brought up to the ICU. Her BUN creatinine are high her bicarbonate level is low and her pH is low and in addition her urinalysis shows white cells. Her blood pressure was also very low and so she is been given some IV fluids. These did not work enough so she was given pressors. She is intubated and on the ventilator. She is not interactive. He is not on sedatives. Review of Systems Review of Systems:
--- NOTE | 2023-06-19 12:38 | IVDEFINITY ---
Prior to administration of IV Definity the patient was educated on the risks and benefits of the imaging enhancing agent including potential adverse side effects. The patient verbalized understanding. Allergies were verified. No exclusion criteria were identified and at least one of the following inclusion criteria were met: 1) physician request, 2) patient technically difficult to image (per the [place] [employer]ocardi[employer] guidelines of two or more segments not discernable within the apical view), or 3) questionable left ventricular function. ?
[2023-06-19] MEDS: PANTOPRAZOLE SODIUM IV 40 MG VIAL IV PUSH (12:41)
[2023-06-19] MEDS: HEPARIN SODIUM 5,000 UNITS/ML VIAL 5000 UNITS SUB-Q ×2 (12:41→21:15)
[2023-06-19] MEDS: INSULIN ASPART (*BKC) 100 UNITS/ML SUB-Q (12:41)
[2023-06-19] MEDS: CEFEPIME 2 GM/NS 50 ML 2 GM/50 ML BAG IVPB (12:43)
--- NOTE | 2023-06-19 12:51 | PCRCNOTE ---
RT and RN are unable to obtain O2 saturations on pt at this time due to low perfusion. Multiple placements attempted.
[2023-06-19 13:01] LABS: Lactic Acid Reflex 11.8 mmol/L (0.7-2.0)
[2023-06-19 13:42] LABS: Alveolar/Arterial O2 Gradient 253.3 mmHg; Base Excess ABG -22.7 mEq/l (+/-2.0); Fractional Inspired Oxygen 100 %; HCO3 ABG 6.6 mEq/l (22.0-26.0); Oxygen Content ABG 18.8 %vol (16.0-22.0); Oxygen Saturation ABG 99.7 % (95.0-100.0); Oxyhemoglobin 98.5 % THb (90.0-100.0); PCO2 ABG 24.9 mmHg (35.0-45.0); PO2 ABG 434.8 mmHg (80.0-100.0); PO2 FiO2 Ratio Arterial Blood 4.35 %; Total Hemoglobin 12.7 g/dL (12.0-18.0)
[2023-06-19 13:45] LABS: Device VENTILATOR; Modified Allen's Test Pass; Site Drawn RIGHT RADIAL; pH ABG 7.039 (7.350-7.450)
[2023-06-19 13:49] LABS: Arterial Blood Gas PEEP 5 cmH2O; Arterial Blood Gas Tidal Volume 350 ml; Arterial Blood Gas Vent Mode CMV; Arterial Blood Gas Ventilator rate 15 /MIN
[2023-06-19 15:16] LABS: Glucose Point of Care 208 mg/dl (65-105)
[2023-06-19 15:37] LABS: Reflex Lactic Acid Yes or No Add Lactic
[2023-06-19 17:40] LABS: Lactic Acid 13.4 mmol/L (0.7-2.0)
[2023-06-19] MEDS: ALBUMIN HUMAN 25% 25 GM/100 ML 100 ML IVPB (18:06)
[2023-06-19 18:18] LABS: Glucose Point of Care 143 mg/dl (65-105)
[2023-06-19 18:29] LABS: Eosinophil Urine None Seen % (None Seen); Urine Eos QC 2nd Tech Confirmed
[2023-06-19 19:29] LABS: Creatinine Urine 21.4 mg/dL
[2023-06-19 19:35] LABS: Creatinine Urine 20.1 mg/dL
[2023-06-19 19:42] LABS: Potassium Urine Random 5.6 meq/L; Sodium Urine Random 127 meq/L; Sodium Urine Random 129 meq/L
[2023-06-19 20:11] LABS: Total Protein Urine Random 246 mg/dL; Ur Ttl Prot Creatinine Ratio 12.24 mg/mg (0-0.20)
[2023-06-19 21:11] LABS: Lactic Acid Reflex 16.8 mmol/L (0.7-2.0)
[2023-06-19] MEDS: CENTRAL LINE FLUSH 10 ML IV PUSH (21:16)
[2023-06-19] MEDS: VASOPRESSIN INJ 100 UNITS in DEXTROSE 5% 95 ML IV CONT (21:45)
[2023-06-19 23:45] LABS: Vancomycin Trough 7.9 ug/mL (10.0-20.0)
[2023-06-20] VITALS (26 sets, daily range): BP systolic 99–145; BP diastolic 51–76; PULSE 0–118; RESP 25–38; TEMP 36–37.4; O2SAT 72–75
[2023-06-20] MEDS: ALBUMIN HUMAN 25% 25 GM/100 ML 100 ML IVPB ×2 (00:39→05:04)
[2023-06-20] MEDS: VANCOMYCIN 750 MG/NS 250 ML 750 MG/250 ML BAG 250 MG IVPB (00:39)
[2023-06-20] MEDS: DEXTROSE 50% 25 GM/50 ML SYRINGE IV PUSH ×5 (00:44→07:42)
[2023-06-20] MEDS: MIDAZOLAM HCL (*CRX) 2 MG/2 ML VIAL IV PUSH (01:01)
[2023-06-20 01:14] LABS: Glucose Point of Care 132 mg/dl (65-105)
[2023-06-20 01:14] LABS: Glucose Point of Care 43 mg/dl (65-105)
[2023-06-20 01:57] LABS: Glucose Point of Care 81 mg/dl (65-105)
[2023-06-20 02:46] LABS: Glucose Point of Care 102 mg/dl (65-105)
[2023-06-20] MEDS: NOREPINEPHRINE 8 MG/D5W 250 ML 8 MG/250 ML BAG 56.25 MG IV CONT ×2 (03:38→08:44)
[2023-06-20 05:03] LABS: Base Excess ABG -19.9 mEq/l (+/-2.0); Fractional Inspired Oxygen 60 %; HCO3 ABG 6.5 mEq/l (22.0-26.0); Oxygen Content ABG 11.4 %vol (16.0-22.0); Oxygen Saturation ABG 99.4 % (95.0-100.0); Oxyhemoglobin 97.9 % THb (90.0-100.0); PO2 ABG 240.1 mmHg (80.0-100.0)
[2023-06-20] MEDS: CENTRAL LINE FLUSH 10 ML IV PUSH (05:04)
[2023-06-20 05:06] LABS: PCO2 ABG 17.9 mmHg (35.0-45.0); pH ABG 7.181 (7.350-7.450)
[2023-06-20 05:07] LABS: Device VENTILATOR; Modified Allen's Test Pass; Site Drawn RIGHT RADIAL; Total Hemoglobin 7.8 g/dL (12.0-18.0)
[2023-06-20 05:08] LABS: Arterial Blood Gas PEEP 5 cmH2O; Arterial Blood Gas Tidal Volume 350 ml; Arterial Blood Gas Vent Mode CMV; Arterial Blood Gas Ventilator rate 20 /MIN
[2023-06-20 05:16] LABS: Glucose Point of Care 60 mg/dl (65-105)
[2023-06-20 05:16] LABS: Glucose Point of Care 96 mg/dl (65-105)
[2023-06-20 07:23] LABS: Hematocrit 21.9 % (37.0-47.0); Mean Corpuscular HGB Conc 29.7 g/dl (32-36); Mean Corpuscular Hemoglobin 24.6 pg (26-34); Platelet Count Result 118 k/mm3 (150-375); Red Blood Count 2.64 M/mm3 (4.2-5.4); White Blood Count 13.4 K/mm3 (4.5-10.0)
[2023-06-20 07:29] LABS: Hemoglobin 6.5 g/dL (12.0-15.0)
[2023-06-20 07:36] LABS: Glucose Point of Care 95 mg/dl (65-105)
[2023-06-20 07:36] LABS: Glucose Point of Care 22 mg/dl (65-105)
[2023-06-20 07:36] LABS: Glucose Point of Care 33 mg/dl (65-105)
[2023-06-20] MEDS: DEXTROSE 5% 1,000 ML 1,000 ML 50 ML IVPB (07:43)
[2023-06-20 07:58] LABS: Lactic Acid Reflex 23.3 mmol/L (0.7-2.0)
[2023-06-20 08:01] LABS: Glucose Point of Care 190 mg/dl (65-105)
[2023-06-20 09:12] LABS: Band Neutrophils Percent 27 % (0-6); Burr Cells 2+ (NORMAL); Hypochromasia 1+ (NORMAL); Lymphocytes Absolute Manual 2.14 K/mm3 (1.1-4.5); Metamyelocytes Percent 12 %; Monocytes Absolute Manual 0.26 K/mm3 (0.1-0.90); Monocytes Percent Manual 2 % (3-9); Neutrophils Absolute Manual 9.38 K/mm3 (1.7-7.2); Neutrophils Percent Manual 43 % (46-73); Total Cells Counted 100
[2023-06-20 09:13] LABS: Anisocytosis 1+ (NORMAL); Ovalocytes 1+ (NORMAL); Schistocytes Rare (NORMAL)
--- NOTE | 2023-06-20 09:24 | WPDINTPN ---
Progress Note: A&P Assessment and Plan (1) Acute respiratory failure: Code(s): J96.00 - Acute respiratory failure, unspecified whether with hypoxia or hypercapnia Status: Acute Assessment and Plan: Patient presented to the ED with altered mental status, normal gag, we intubated for airway protection -06/18: Intubation -currently on CMV mode of ventilation, peep of 5 and 100% FiO2 via wean FiO2 to maintain O2 sats > 92% -low tidal volume strategy -ABGs and chest x-ray reviewed -not on any sedation (2) Septic shock: Code(s): A41.9 - Sepsis, unspecified organism; R65.21 - Severe sepsis with septic shock Status: Acute Assessment and Plan: Septic shock likely related to UTI -patient has a cholecystostomy tube that was placed at [facility] earlier this month -elevated lactic acid level -patient has been adequately fluid-resuscitated -patient is on Taj-Synephrine and Levophed, maintain MAP > 70 mmHg are SBP > 100 mmHg -patient given additional IV fluid bolus -patient has been started on cefepime and vancomycin (06/19) -06/18: blood cultures preliminary results are negative -06/18: Urine cultures negative (3) LOUISE (acute kidney injury): Code(s): N17.9 - Acute kidney failure, unspecified Status: Acute Assessment and Plan: Acute kidney injury with creatinine on admission of 5.80. Likely related to hypotension, septic shock, UTI -CT scan of the abdomen and pelvis did not show any suspicious mass in the kidneys, no obstructing stone or hydronephrosis -patient adequately fluid-resuscitated -continue sodium bicarb infusion -will obtain urine lytes, and urine eosinophils -CK levels of 221 -worsening renal function and metabolic acidosis, lactic levels of 23.3 -continue to monitor urine output, renal function, electrolytes -discussed with Nephrology (4) Metabolic acidosis: Code(s): E87.20 - Acidosis, unspecified Status: Acute Assessment and Plan: Metabolic acidosis likely related to lactic acidosis, uremia -continue bicarb infusion (5) Diabetes: Code(s): E11.9 - Type 2 diabetes mellitus without complications Status: Acute Assessment and Plan: Accu-Cheks and sliding scale insulin -patient has been hypoglycemic likely related to multiorgan dysfunction (6) Multiorgan failure: Status: Acute Assessment and Plan: Multiorgan failure likely secondary to septic shock (7) Elevated LFTs: Code(s): R79.89 - Other specified abnormal findings of blood chemistry Status: Acute Assessment and Plan: Likely related to septic shock, hypotension, shock liver Plan DVT prophylaxis: Heparin SQ Stress ulcer prophylaxis: Protonix Nutrition: NPO for now Code Status: Do not resuscitate/comfort measures Critical Care Time Spent: 35 minutes 06/20: Discussed with patient's Aiden, updated him with her worsening condition, elevated lactic acid, renal dysfunction, multiorgan system failure. He understands has decided to make her comfort measures. Comfort measure orders entered in the chart. Bedside RN is aware 06/19: Discussed with patient's , Aiden, updated with patient's condition plan of care. He is aware that the patient is very sick and that she is suffering. He does not want any CPR on her at this time we wants to continue everything else for now Due to a high probability of clinically significant, life threatening deterioration, the patient required my highest level of preparedness to intervene emergently and I personally spent this critical care time directly and personally managing the patient. This critical care time included obtaining a history; examining the patient; pulse oximetry; ordering and review of studies; arranging urgent treatment with development of a management plan; evaluation of patient's response to treatment; frequent reassessment; and discussions with other providers. It was exc
[2023-06-20] MEDS: LORazepam INJ (*CRX) 2 MG/ML VIAL IV PUSH (09:32)
[2023-06-20] MEDS: MORPHINE SULFATE INJ (*CRX) 10 MG/ML AMP 5 MG IV PUSH (09:32)
--- NOTE | 2023-06-20 10:04 | PM.EVENT ---
Event Note Event Note Event Note: Patient is going on comfort measures. Renal will sign off.
[2023-06-20 10:22] LABS: Reflex Lactic Acid Yes or No Add Lactic
--- NOTE | 2023-06-20 10:40 | PC.NURSE ---
Patient made Comfort measures at 932am. Gave Ativan and Morphine as ordered. Time of 1007.
[2023-06-24 13:37] LABS: Chloride Rand Ur 76 mmol/L (32-290); Chloride/Creatinine Rand Ur 507 (38-318); Creatinine Random Urine 15 mg/dL (20-275)
--- NOTE | 2023-07-22 13:36 | PM.DDS ---
Discharge Summary Date and Time Date of : 06/20/23 Time of : 10:07 Provider Pronounced By: Margaret Terrell RN and Bobbi Chang RN Probable Cause of Probable Cause of : Acute respiratory failure, septic shock, cardiac arrest, acute kidney injury Summary Hospital Course: Reason for consult: Acute respiratory failure, Septic shock, UTI, altered mental status, lethargy acute kidney injury, metabolic acidosis/lactic acidosis Marcelina Cortes is a 88 year old female diabetes, essential hypertension, depression, anxiety, cholecystostomy tube placement in May 2023 presented the ED on 06/18/2023 evening with complains of full to mental status, lethargy.? In the patient has been getting weaker and lethargic decreased p.o. intake since she got a cholecystostomy tube in earlier part of this month at [facility].? He found her decreased mentation and brought to the ED she was found to be hypotensive, acute respiratory failure as she had no gag on arrival and was intubated in the ER on 06/18.? She was also found to be in acute kidney injury with a creatinine of 4.90, CO2 less than 5, WBC count of 24.4.? Patient was given 2 L IV fluid bolus and was started on ceftriaxone and vancomycin and transfer the ICU for further management.? Upon arrival to the ICU last evening patient remained hypotensive, additional IV fluid bolus was given, patient was started on sodium bicarb infusion, and peripheral Taj-Synephrine. (1) Acute respiratory failure: ?Code(s): J96.00 - Acute respiratory failure, unspecified whether with hypoxia or hypercapnia ?Status:?Acute ?Assessment and Plan: Patient presented to the ED with altered mental status, normal gag, we intubated for airway protection -06/18:? Intubation -currently on CMV mode of ventilation, peep of 5 and 100% FiO2 via wean FiO2 to maintain O2 sats > 92% -low tidal volume strategy -ABGs and chest x-ray reviewed -not on any sedation (2) Septic shock: ?Code(s): A41.9 - Sepsis, unspecified organism; R65.21 - Severe sepsis with septic shock ?Status:?Acute ?Assessment and Plan: Septic shock likely related to UTI -patient has a cholecystostomy tube that was placed at [facility] earlier this month -elevated lactic acid level -patient has been adequately fluid-resuscitated -patient is on Taj-Synephrine and Levophed, maintain MAP > 70 mmHg are SBP > 100 mmHg -patient given additional IV fluid bolus -patient has been started on cefepime and vancomycin (06/19) -06/18: blood cultures preliminary results are negative -06/18:? Urine cultures negative (3) LOUISE (acute kidney injury): ?Code(s): N17.9 - Acute kidney failure, unspecified ?Status:?Acute ?Assessment and Plan: Acute kidney injury with creatinine on admission of 5.80.? Likely related to hypotension, septic shock, UTI -CT scan of the abdomen and pelvis did not show any suspicious mass in the kidneys, no obstructing stone or hydronephrosis -patient adequately fluid-resuscitated -continue sodium bicarb infusion -will obtain urine lytes, and urine eosinophils -CK levels of 221 -worsening renal function and metabolic acidosis, lactic levels of 23.3 -continue to monitor urine output, renal function, electrolytes -discussed with Nephrology (4) Metabolic acidosis: ?Code(s): E87.20 - Acidosis, unspecified ?Status:?Acute ?Assessment and Plan: Metabolic acidosis likely related to lactic acidosis, uremia -continue bicarb infusion (5) Diabetes: ?Code(s): E11.9 - Type 2 diabetes mellitus without complications ?Status:?Acute ?Assessment and Plan: Accu-Cheks and sliding scale insulin -patient has been hypoglycemic likely related to multiorgan dysfunction (6) Multiorgan failure: ?Status:?Acute ?Assessment and Plan: Multiorgan failure likely secondary to septic shock (7) Elevated LFTs: ?Code(s): R79.89 - Other specifie
== END 2023-06-20 10:07 | disposition expired | DRG 871 ==
LOC: ANHED 21:26 → ANHICU 23:48
PROVIDERS: Internal Medicine Nephrology; Admitting Provider Internal Medicine; Emergency Provider Emergency Medicine; Visit Provider Internal Medicine
DX: A41.9 Sepsis, unspecified organism (principal); J96.01 Acute respiratory failure with hypoxia; R65.21 Severe sepsis with septic shock; N39.0 Urinary tract infection, site not specified; E87.20 Acidosis, unspecified; N17.9 Acute kidney failure, unspecified; E11.69 Type 2 diabetes mellitus with other specified complication; F32.A Depression, unspecified; F41.9 Anxiety disorder, unspecified; I10 Essential (primary) hypertension; K44.9 Diaphragmatic hernia without obstruction or gangrene; Z79.84 Long term (current) use of oral hypoglycemic drugs; Z93.59 Other cystostomy status; Z90.49 Acquired absence of other specified parts of digestive tract
CPT/HCPCS: 36415; 36569; 36600; 70450; 71045; 74176; 80048; 80053; 80202; 81001; 82375; 82436; 82550; 82570; 82805; 82948; 83036; 83050; 83605; 83690; 83735; 84100; 84133; 84145; 84156; 84300; 84478; 85025; 85027; 85610; 85652; 85730; 85999; 86140; 87040; 87086; 87088; 93005; 94003; 96365; 96367; 96375; 96376; 99285; C1751; C8929; C9113; G0378; J0692; J0696; J1644; J1815; J2060; J2250; J2270; J2371; J2704; J3370; J7030; J7060; J7070; P9047; Q9957